=== PATIENT | female | born 1980 | race African-American/Black ===

== ENCOUNTER 2021-06-14 12:09 | Observation (INO) ==
[2021-06-14 16:03] LABS: Basophils % 0.7 % (0.0-0.8); Calcium 8.6 MG/DL (8.5-10.1); Hematocrit 24.2 VOL% (35.7-47.0); Hemoglobin 6.6 GM/DL (12.0-16.0); Immature Granulocytes % 0.3 %; Immature Granulocytes Absolute 0.01 #; Lymphocytes # 0.9 10*3/uL (1.4-4.0); Lymphocytes % 30.4 % (21.3-54.2); Mean Corpuscular HGB Conc 27.3 GM/DL (32-36); Mean Corpuscular Volume 63.7 FL (87-102); Monocytes % 15.4 % (1.7-12.7); Neutrophils % 52.2 % (38.7-73.9); Osmolality,Calculated 261.4 MOS/KG (273-304); Platelet Count 302 T/CUMM (130-400); Potassium 2.7 MMOL/L (3.5-5.1); Red Cell Distribution Width 20.2 % (9.3-17.3)
[2021-06-14] MEDS ORDERED: ONDANSETRON ODT 4 MG TABLET PO STA (16:10)
[2021-06-14] MEDS ORDERED: IBUPROFEN 800 MG TABLET PO STA (16:10)
[2021-06-14] MEDS ORDERED: POTASSIUM CHLORIDE RIDER 20 MEQ/100 ML PREMIX IV STA (16:11)
[2021-06-14] MEDS ORDERED: METOCLOPRAMIDE 10 MG/2 ML VIAL IV STA (16:11)
[2021-06-14] MEDS ORDERED: ONDANSETRON 4 MG/2 ML VIAL IV STA (16:11)
[2021-06-14] MEDS ORDERED: PANTOPRAZOLE 40 MG VIAL IV STA (16:11)
[2021-06-14] MEDS ORDERED: SODIUM CHLORIDE 0.9% 1,000 ML IV STA ×2 (16:11→19:26)
[2021-06-14] MEDS ORDERED: IBUPROFEN 400 MG TABLET ONE (16:13)
[2021-06-14 16:28] LABS: Bacteria,Urine Occasional /HPF (Few); Bilirubin,Urine Negative (Negative); Blood, Urine Moderate mg/dL (Negative); Glucose,Urine (UA) Negative (Negative); Ketones,Urine 5 mg/dL (Negative); Mucus,Urine Moderate /LPF (Occasional); Nitrite,Urine Negative (Negative); Protein,Urine 30 MG/DL; RBC,Urine 5 /HPF (0-4); Squamous Epithelial Cell,Urine Few /HPF (0-10); Urine Appearance CLOUDY (Clear); Urine Color Yellow (Yellow); Urine Specific Gravity 1.013 (1.001-1.035); Urine Urobilinogen < 2.0 EU/DL (<2.0)
[2021-06-14] MEDS ORDERED: POTASSIUM CHLORIDE RIDER 10 MEQ/100 ML PREMIX IV STA (17:13)
[2021-06-14 17:45] LABS: Eosinophils 1 % (0-10); Lymphocytes 22 % (20-55); Segmented Neutrophils 66 % (50-85); Total Cells Counted 100
[2021-06-14 17:46] LABS: Anisocytosis 1+; Hypochromia 2+; Ovalocytes Slight
[2021-06-14 17:47] LABS: Platelet Estimate Normal
[2021-06-14] MEDS ORDERED: cefTRIAXone 2,000 MG in SODIUM CHLORIDE 0.9% 100 ML IV STA (18:59)
[2021-06-14] MEDS ORDERED: ONDANSETRON 4 MG/2 ML VIAL IV PRN (19:25)
[2021-06-14] MEDS ORDERED: GLUCAGON 1 MG VIAL IM PRN (19:25)
[2021-06-14] MEDS: SODIUM CHLORIDE 0.9% 2,000 ML IV STA ×2 (19:26→20:35)
[2021-06-14] MEDS: SODIUM CHLORIDE 0.9% 1,000 ML IV SCH ×2 (19:26→23:45)
[2021-06-14] MEDS ORDERED: SODIUM CHLORIDE 0.9% 1,000 ML IV PRN (19:29)
[2021-06-14] MEDS ORDERED: SODIUM CHLORIDE 0.9% 1,000 ML IV SCH (19:30)
[2021-06-14] MEDS ORDERED: DEXTROSE 10% 250 ML BAG IV PRN (19:30)
[2021-06-14 19:57] LABS: % Iron Saturation 3.5 % (18-50)
[2021-06-14 20:03] LABS: Folate 5.62 NG/ML (5.38-24.0)
[2021-06-14] MEDS ORDERED: hydrALAZINE 25 MG TABLET PO STA (21:17)
[2021-06-14] MEDS: FERROUS SULFATE 325 MG TABLET PO SCH (23:45)
[2021-06-15] MEDS: ACETAMINOPHEN 325 MG TABLET PO PRN ×3 (01:59→08:21)
[2021-06-15] MEDS: SODIUM CHLORIDE 0.9% 1,000 ML IV SCH ×2 (03:47→08:30)
[2021-06-15 04:53] LABS: Basophils % 0.4 % (0.0-0.8); Eosinophils # 0.1 10*3/uL (0.0-0.87); Eosinophils % 2.4 % (0.00-10.9); Hematocrit 25.7 VOL% (35.7-47.0); Hemoglobin 7.4 GM/DL (12.0-16.0); Immature Granulocytes % 0.4 %; Immature Granulocytes Absolute 0.01 #; Lymphocytes % 40.3 % (21.3-54.2); Mean Corpuscular HGB Conc 28.8 GM/DL (32-36); Mean Corpuscular Volume 68.9 FL (87-102); Mean Platelet Volume 10.5 FL (9.6-12.0); Neutrophils % 37.5 % (38.7-73.9); Platelet Count 236 T/CUMM (130-400); Red Blood Count 3.73 MC/CUMM (3.8-5.5); Red Cell Distribution Width 24.1 % (9.3-17.3); White Blood Count 2.5 T/CUMM (4-12)
[2021-06-15 05:15] LABS: Calcium 7.7 MG/DL (8.5-10.1); Osmolality,Calculated 266.1 MOS/KG (273-304); Potassium 3.2 MMOL/L (3.5-5.1)
[2021-06-15 05:21] LABS: Eosinophils 1 % (0-10); Hypochromia 1+; Lymphocytes 42 % (20-55); Microcytosis 1+; Platelet Estimate Adequate; Segmented Neutrophils 39 % (50-85); Total Cells Counted 100
[2021-06-15] MEDS: POTASSIUM CHLORIDE 20 MEQ TABLET PO PRN ×3 (06:30→11:19)
[2021-06-15] MEDS: FERROUS SULFATE 325 MG TABLET PO SCH (08:22)
[2021-06-15] MEDS ORDERED: PANTOPRAZOLE 40 MG TABLET PO SCH (09:00)
[2021-06-15 11:58] LABS: Hemoglobin 8.8 GM/DL (12.0-16.0)
[2021-06-15 13:15] VITALS: BP 145/87
[2021-06-15] MEDS ORDERED: cefTRIAXone 1,000 MG in SODIUM CHLORIDE 0.9% 100 ML IV SCH (21:00)
== END 2021-06-15 15:30 | disposition home or self-care (01) ==
LOC: N.ED 12:09 → N.ICU 12:09 → SUATTDRO 19:25 → N.ICU 22:57
PROVIDERS: ADMIT Internal Medicine; ATTEND Hospitalist

== ENCOUNTER 2021-08-04 04:59 | Inpatient (IN) ==
[2021-07-28 17:43] LABS: Basophils # 0.1 10*3/uL (0.0-0.2); Basophils % 0.8 % (0.0-0.8); Eosinophils # 0.7 10*3/uL (0.0-0.87); Eosinophils % 11.2 % (0.00-10.9); Hematocrit 30.7 VOL% (35.7-47.0); Hemoglobin 9.1 GM/DL (12.0-16.0); Immature Granulocytes % 0.2 %; Immature Granulocytes Absolute 0.01 #; Lymphocytes # 2.4 10*3/uL (1.4-4.0); Lymphocytes % 37.4 % (21.3-54.2); Mean Corpuscular HGB Conc 29.6 GM/DL (32-36); Mean Corpuscular Volume 70.9 FL (87-102); Mean Platelet Volume 9.6 FL (9.6-12.0); Monocytes % 6.4 % (1.7-12.7); Platelet Count 247 T/CUMM (130-400); Red Blood Count 4.33 MC/CUMM (3.8-5.5); Red Cell Distribution Width 27.5 % (9.3-17.3); White Blood Count 6.4 T/CUMM (4-12)
[2021-07-28 17:54] LABS: Calcium 8.4 MG/DL (8.5-10.1); Osmolality,Calculated 276.5 MOS/KG (273-304); Potassium 3.9 MMOL/L (3.5-5.1)
[2021-07-28 18:01] LABS: INR 0.9; PT Patient Result 10.4 SECS (10.5-12.0); Partial Thromboplastin Time 25.2 SECS (23.8-32.1)
[2021-07-28 19:14] LABS: Bilirubin,Urine Negative (Negative); Blood, Urine Negative (Negative); Glucose,Urine (UA) Negative (Negative); Ketones,Urine Negative (Negative); Nitrite,Urine Negative (Negative); Protein,Urine Negative (Negative); RBC,Urine 1 /HPF (0-4); Squamous Epithelial Cell,Urine Occasional /HPF (0-10); Urine Appearance Clear (Clear); Urine Color Yellow (Yellow); Urine Specific Gravity 1.028 (1.001-1.035); Urine Urobilinogen 0.2 eU/dL (<2.0)
[2021-07-28 19:15] LABS: Mucus,Urine Moderate /LPF (Occasional)
[2021-07-28 19:28] LABS: Eosinophils 9 % (0-10); Lymphocytes 44 % (20-55); Platelet Estimate Normal; Segmented Neutrophils 45 % (50-85); Total Cells Counted 100
[2021-07-28 19:29] LABS: Elliptocytes Few; Hypochromia Slight
[2021-08-04] MEDS ORDERED: MIDAZOLAM 2 MG/2 ML VIAL ONE ×2 (06:16→06:55)
[2021-08-04] MEDS ORDERED: fentaNYL 100 MCG/2 ML VIAL ONE ×2 (06:16→07:32)
[2021-08-04] MEDS ORDERED: DIAZEPAM 5 MG TABLET ONE (06:20)
[2021-08-04] MEDS ORDERED: FAMOTIDINE 20 MG TABLET ONE (06:20)
[2021-08-04] MEDS ORDERED: ROCURONIUM 50 MG/5 ML VIAL IV ONE ×3 (06:23→08:49)
[2021-08-04] MEDS ORDERED: propofoL 200 MG/20 ML VIAL IV ONE (06:23)
[2021-08-04] MEDS ORDERED: ONDANSETRON 4 MG/2 ML VIAL ONE (06:23)
[2021-08-04] MEDS ORDERED: LIDOCAINE 2% 5 ML VIAL ONE ×2 (06:23→06:28)
[2021-08-04] MEDS ORDERED: ROPIVACAINE 0.5% 30 ML VIAL ONE (06:28)
[2021-08-04] MEDS ORDERED: DEXAMETHASONE 4 MG/1 ML VIAL ONE (06:28)
[2021-08-04] MEDS ORDERED: FAMOTIDINE 20 MG TABLET PO ONE (06:30)
[2021-08-04] MEDS ORDERED: LACTATED RINGERS 1,000 ML IV SCH ×2 (06:30→10:00)
[2021-08-04] MEDS ORDERED: DIAZEPAM 5 MG TABLET PO ONE (06:30)
[2021-08-04] MEDS ORDERED: SEVOFLURANE 1 UNIT/15 MINUTE INH ONE (06:33)
[2021-08-04] MEDS ORDERED: ACETAMINOPHEN INJ 1,000 MG/100 ML VIAL IV ONE (07:48)
[2021-08-04] MEDS ORDERED: GLYCOPYRROLATE 0.4 MG/2 ML VIAL ONE (07:58)
[2021-08-04] MEDS ORDERED: LACTATED RINGERS 1,000 ML IV ONE (07:59)
[2021-08-04] MEDS ORDERED: SUGAMMADEX 200 MG/2 ML VIAL IV ONE (08:16)
[2021-08-04] MEDS ORDERED: BISACODYL 10 MG SUPP RECTAL PRN (09:32)
[2021-08-04] MEDS ORDERED: ONDANSETRON 4 MG/2 ML VIAL IV PRN ×2 (09:32→09:47)
[2021-08-04] MEDS ORDERED: DOCUSATE SODIUM 100 MG CAPSULE PO PRN (09:32)
[2021-08-04] MEDS ORDERED: BENZOCAINE/MENTHOL LOZENGE 18/BOX PO PRN (09:32)
[2021-08-04] MEDS ORDERED: IBUPROFEN 800 MG TABLET PO PRN (09:32)
[2021-08-04] MEDS ORDERED: ACETAMINOPHEN 325 MG TABLET PO PRN (09:32)
[2021-08-04] MEDS ORDERED: MAGNESIUM HYDROXIDE SUSP 30 ML UDCUP PO PRN (09:32)
[2021-08-04] MEDS ORDERED: HYDROmorphone 1 MG/1 ML SYRINGE ONE (09:46)
[2021-08-04 09:48] LABS: Bilirubin,Urine Negative (Negative); Blood, Urine Negative (Negative); Glucose,Urine (UA) Negative (Negative); Ketones,Urine Negative (Negative); Nitrite,Urine Negative (Negative); Protein,Urine Negative (Negative); RBC,Urine 1 /HPF (0-4); Squamous Epithelial Cell,Urine Occasional /HPF (0-10); Urine Appearance Clear (Clear); Urine Color Yellow (Yellow); Urine Urobilinogen 0.2 eU/dL (<2.0)
[2021-08-04] MEDS: HYDROmorphone 1 MG/1 ML SYRINGE IV PRN ×2 (09:49→10:08)
[2021-08-04] MEDS ORDERED: PROMETHAZINE 25 MG/1 ML VIAL IM PRN (10:45)
[2021-08-04] MEDS: KETOROLAC 30 MG/1 ML VIAL IV PRN ×3 (12:01→23:58)
[2021-08-04] MEDS: HYDROmorphone 1 MG/1 ML SYRINGE IV ONE ×2 (14:31→14:34)
[2021-08-04] MEDS: oxyCODONE/ACETAMINOPHEN 5-325 MG TABLET PO PRN (21:16)
[2021-08-05] MEDS: oxyCODONE/ACETAMINOPHEN 5-325 MG TABLET PO PRN ×3 (03:37→12:21)
[2021-08-05 06:38] LABS: Basophils % 0.3 % (0.0-0.8); Eosinophils # 0.1 10*3/uL (0.0-0.87); Eosinophils % 1.5 % (0.00-10.9); Hematocrit 28.4 VOL% (35.7-47.0); Hemoglobin 8.4 GM/DL (12.0-16.0); Immature Granulocytes % 0.3 %; Immature Granulocytes Absolute 0.02 #; Lymphocytes % 26.9 % (21.3-54.2); Mean Corpuscular HGB Conc 29.6 GM/DL (32-36); Mean Corpuscular Volume 71.9 FL (87-102); Mean Platelet Volume 9.1 FL (9.6-12.0); Monocytes % 9.2 % (1.7-12.7); Neutrophils % 61.8 % (38.7-73.9); Platelet Count 332 T/CUMM (130-400); Red Blood Count 3.95 MC/CUMM (3.8-5.5); Red Cell Distribution Width 26.4 % (9.3-17.3); White Blood Count 7.3 T/CUMM (4-12)
[2021-08-05 06:56] LABS: Anisocytosis 1+; Hypochromia 1+; Microcytosis 1+; Ovalocytes Slight
[2021-08-05 06:57] LABS: Platelet Estimate Normal; Target Cells Slight
[2021-08-05] MEDS ORDERED: SIMETHICONE CHEW 80 MG TABLET PO PRN (08:00)
[2021-08-05 11:08] VITALS: BP 132/72
== END 2021-08-05 15:00 | disposition home or self-care (01) | DRG 743 ==
LOC: N.OR 04:59 → N.SDSINP 05:00 → EDSTATUS 07:30 → N.OB 10:35
PROVIDERS: ADMIT Specialist; ATTEND Specialist